=== PATIENT | male | born 1950 | race Caucasian/White ===

== ENCOUNTER 2016-10-25 11:57 | Emergency (ER) | payer OTHER, MEDICARE ==
[~2016-10-25 11:57] MED LIST: ACULAR 3 ML3 M1 OP; CATAFLAM50 MG PO; CYCLOBENZAPRINE10 MG PO; HYDROCODONE BIT1 T11 PO; LOTENSIN40 MG PO; NORCO 5-325 TA1 EACH PO; NORFLEX100 MG PO; TOBREX OPHTH S2.5 ML OPH; VICODIN 5/500 505 MG PO
[2016-10-25 12:24] LABS: HEMATOCRIT 48.8 % (42.0-52.0); HEMOGLOBIN 16.1 g/dl (14.0-18.0); MEAN CELL VOLUME 90.7 fl (80.0-94.0); MEAN CORPUSCULAR HGB 29.9 pg (27.0-31.0); MEAN PLATELET VOLUME 10.4 fl (9.6-12.3); PLATELET COUNT AUTOMATED 210 10*3/uL (130-400); RED BLOOD COUNT 5.38 10*6/uL (4.50-5.90); WHITE BLOOD COUNT 6.1 10*3/uL (4.8-10.8)
[2016-10-25 12:33] LABS: PROTHROMBIN TIME 10.9 SECONDS (9.0-12.4)
[2016-10-25 12:40] LABS: ALBUMIN 3.7 gm/dl (3.1-4.5); ALKALINE PHOSPHATASE 59 U/L (45-117); BILIRUBIN, TOTAL 0.5 mg/dl (0.2-1.0); BUN 16 mg/dl (7-24); CARBON DIOXIDE 27 mmol/L (21-32); CHLORIDE 103 mmol/L (98-107); CKMB 0.5 ng/ml (0.5-3.6); CPK 58 U/L (39-308); EST GLOM FILT AFRICAN AMERICAN > 60 ml/min; GLUCOSE 102 mg/dL (65-99); SGOT/AST 22 IU/L (3-35); SGPT/ALT 26 U/L (12-78); SODIUM 140 mmol/L (136-145); TOTAL PROTEIN 7.7 gm/dL (6.4-8.2)
[2016-10-25 12:43] LABS: C-REACTIVE PROTEIN < 0.29 MG/DL (0-0.3); TROPONIN I < 0.015 ng/ml (<0.045)
[2016-10-25 12:47] LABS: BASOPHIL # 0.1 10*3/uL (0-0.1); BASOPHILS 2 % (0-1); LYMPHOCYTE # 1.4 10*3/uL (1.3-4.4); MONOCYTE # 1.2 10*3/uL (0.1-1.0); NEUTROPHIL # 3.4 10*3/uL (2.3-7.9); NEUTROPHILS 55 % (47-73); PLATELET SUFFICIENCY NORMAL (NORMAL); TOTAL CELLS COUNTED 100 #CELLS
[2016-10-25 12:57] LABS: BILIRUBIN NEGATIVE (NEGATIVE); BLOOD 1+ (NEGATIVE); CLARITY CLEAR (CLEAR); COLOR YELLOW (YELLOW); GLUCOSE NEGATIVE (NEGATIVE); KETONE NEGATIVE (NEGATIVE); LEUKO ESTERASE NEGATIVE (NEGATIVE); NITRITE NEGATIVE (NEGATIVE); PROTEIN NEGATIVE (NEGATIVE); UROBILINOGEN 0.2 E.U./dl (0.2-1.0)
[2016-10-25 13:11] LABS: URINE REFLEX COMMENT YES (NO)
[2016-10-25] MEDS ORDERED: ZITHROMAX250 MG PO (14:03)
[2016-10-25] MEDS ORDERED: PREDNISONE50 MG PO (14:03)
== END 2016-10-25 14:08 | disposition home or self-care (01) ==
LOC: ED 11:57
PROVIDERS: Emergency Medicine
DX: J20.9 Acute bronchitis, unspecified (principal); F17.200 Nicotine dependence, unspecified, uncomplicated; I10 Essential (primary) hypertension; Z90.49 Acquired absence of other specified parts of digestive tract; Z98.890 Other specified postprocedural states; Z79.899 Other long term (current) drug therapy

== ENCOUNTER 2017-07-23 10:48 | Emergency (ER) | payer OTHER, MEDICARE ==
[~2017-07-23] VITALS: Ht 160 cm; Wt 90.7 kg
[~2017-07-23 10:48] MED LIST changes: +PREDNISONE50 MG PO; +ZITHROMAX250 MG PO
[2017-07-23] MEDS ORDERED: NAPROSYN500 MG PO (12:50)
== END 2017-07-23 14:51 | disposition home or self-care (01) ==
LOC: ED 10:48
DX: M16.11 Unilateral primary osteoarthritis, right hip (principal); M47.896 Other spondylosis, lumbar region; M79.604 Pain in right leg; R03.0 Elevated blood-pressure reading, without diagnosis of hypertension; F17.200 Nicotine dependence, unspecified, uncomplicated; Z90.49 Acquired absence of other specified parts of digestive tract; Z98.890 Other specified postprocedural states; Z79.899 Other long term (current) drug therapy

== ENCOUNTER 2017-08-13 17:56 | Emergency (ER) | payer OTHER, MEDICARE ==
[~2017-08-13] VITALS: Ht 160 cm; Wt 93.0 kg
[~2017-08-13 17:56] MED LIST changes: +NAPROSYN500 MG PO
[2017-08-13] MEDS ORDERED: PREDNISONE10 MG PO (18:30)
[2017-08-13] MEDS ORDERED: CHLORZOXAZONE500 M2 PO (18:30)
== END 2017-08-13 18:47 | disposition home or self-care (01) ==
LOC: ED 17:56
DX: M79.661 Pain in right lower leg (principal); R03.0 Elevated blood-pressure reading, without diagnosis of hypertension; F17.200 Nicotine dependence, unspecified, uncomplicated; M19.90 Unspecified osteoarthritis, unspecified site

== ENCOUNTER 2018-03-06 14:52 | Emergency (ER) | payer OTHER ==
[~2018-03-06] VITALS: Ht 160 cm; Wt 90.7 kg
[~2018-03-06 14:52] MED LIST changes: +CHLORZOXAZONE500 M2 PO; +PREDNISONE10 MG PO
== END 2018-03-06 16:08 | disposition home or self-care (01) ==
LOC: ED 14:52
DX: S40.012A Contusion of left shoulder, initial encounter (principal); Z79.899 Other long term (current) drug therapy; W10.8XXA Fall (on) (from) other stairs and steps, initial encounter; Y93.01 Activity, walking, marching and hiking; Y92.89 Other specified places as the place of occurrence of the external cause; Y99.8 Other external cause status

== ENCOUNTER 2018-06-23 11:33 | Inpatient (IN) | payer OTHER ==
[2018-06-23] VITALS (8 sets, daily range): BP systolic 114–190; BP diastolic 53–90
[~2018-06-23] VITALS: Ht 160 cm; Wt 90.5 kg
--- NOTE | ~2018-06-23 | EKG ---
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
--- NOTE | ~2018-06-23 | EKG ---
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
--- NOTE | ~2018-06-23 | EKG ---
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
--- NOTE | ~2018-06-23 | PR ---
[place], [place] PROGRESS NOTE NAME: JENNIFER TORO [facility] #: [id number] UNIT #: [id number] ROOM: 511 DOCTOR: ALEXANDRA MOSES MD BIRTHDATE: [birth year] DOS: 06/24/2018 CARDIOLOGY PROGRESS NOTE SUBJECTIVE: The patient was seen in the Cardiology Department today, 06/24/2018 prior to his pharmacologic stress test. He is a 68-year-old man without any previous history of coronary artery disease who does have risk factors of hypertension and tobacco abuse. He presented to the hospital with several days of chest pain in his chest. The pain improves with rest, but gets worse with deep breathing or twisting. He states that it feels deeper than his chest wall. He did not have any associated fever, chills, nausea or diaphoresis. Since he has been in the hospital, his cardiograms have shown no acute changes. Cardiac troponin levels have been normal and a D-dimer is normal for his age. PHYSICAL EXAMINATION: VITAL SIGNS: Today, his pulse is 74 and regular, blood pressure is 144/74. He is afebrile. He weighs 90.5 kg and has a body mass index of 35.4. HEENT: Normocephalic and atraumatic. Extraocular muscles are intact. Sclerae are clear. Pupils equal, round and react to light. The oral mucosa is moist. Tongue is midline. NECK: Supple. He has no jugular distention. Carotids are full without bruits. LUNGS: Respirations are unlabored. He has decreased breath sounds at the bases, but no wheezes or rales. He has no presacral edema or chest wall tenderness. HEART: Has a regular rhythm with an S4 gallop. ABDOMEN: Soft and normally active. I could not reproduce his pain by palpation of the abdomen or the chest. EXTREMITIES: Showed no edema. There were no palpable cords or swelling. Pedal pulses are palpable bilaterally. IMPRESSION: Chest pain with features of musculoskeletal pain. PLAN: The patient has ruled out for an acute myocardial infarction, but he does have risk factors for coronary artery disease. PLAN: We will evaluate him further with a pharmacologic stress test. Further recommendations will depend upon the results of the stress test. I thank the hospitalist physicians for asking our advice regarding his assessment. [place], [place] PROGRESS NOTE NAME: JENNIFER TORO UNIT #: [id number] ROOM: 511 DOCTOR: ALEXANDRA MOSES MD BIRTHDATE: [birth year] ALEXANDRA MOSES MD CM:PNTRANS [id number] ALEXANDRA MOSES MD 06/24/18 1626 interface
[2018-06-23 11:48] LABS: HEMATOCRIT 49.4 % (42.0-52.0); HEMOGLOBIN 16.4 g/dl (14.0-18.0); MEAN CELL VOLUME 90.8 fl (80.0-94.0); MEAN CORPUSCULAR HGB 30.1 pg (27.0-31.0); MEAN CORPUSCULAR HGB CONC 33.2 g/dl (33.0-37.0); MEAN PLATELET VOLUME 10.4 fl (9.6-12.3); PLATELET COUNT AUTOMATED 279 10*3/uL (130-400); RED BLOOD COUNT 5.44 10*6/uL (4.50-5.90); RED CELL DISTRI WIDTH 13.5 % (0-14.5); WHITE BLOOD COUNT 13.6 10*3/uL (4.8-10.8)
[2018-06-23 11:57] LABS: ACT PARTIAL THROMBO TIME 24.9 SECONDS (20.8-31.5)
[2018-06-23 12:08] LABS: ATYPICAL LYMPHS 1 % (0-0); PLATELET SUFFICIENCY NORMAL (NORMAL); TOTAL CELLS COUNTED 100 #CELLS
[2018-06-23 12:16] LABS: ALBUMIN 3.7 gm/dl (3.1-4.5); ALKALINE PHOSPHATASE 81 U/L (45-117); BUN 21 mg/dl (7-24); CHLORIDE 103 mmol/L (98-107); CREATININE 1.14 mg/dL (0.70-1.30); SGOT/AST 19 IU/L (3-35); SGPT/ALT 26 U/L (12-78); SODIUM 138 mmol/L (136-145); TOTAL PROTEIN 7.9 gm/dL (6.4-8.2)
[2018-06-23 12:17] LABS: TROPONIN I < 0.015 ng/ml (<0.045)
[2018-06-23] MEDS ORDERED: Lopressor25 MG PO (14:29)
[2018-06-23] MEDS ORDERED: AMLODIPINE BESYL5 MG PO (14:30)
[2018-06-24] VITALS: BP 122/62
[2018-06-24 06:28] LABS: HEMOGLOBIN 14.8 g/dl (14.0-18.0); MEAN CELL VOLUME 91.6 fl (80.0-94.0); MEAN CORPUSCULAR HGB 29.5 pg (27.0-31.0); MEAN CORPUSCULAR HGB CONC 32.2 g/dl (33.0-37.0); MEAN PLATELET VOLUME 10.3 fl (9.6-12.3); PLATELET COUNT AUTOMATED 248 10*3/uL (130-400); RED BLOOD COUNT 5.02 10*6/uL (4.50-5.90); RED CELL DISTRI WIDTH 13.4 % (0-14.5); WHITE BLOOD COUNT 10.1 10*3/uL (4.8-10.8)
[2018-06-24 06:44] LABS: ACT PARTIAL THROMBO TIME 25.1 SECONDS (20.8-31.5)
[2018-06-24 06:54] LABS: ALBUMIN 3.2 gm/dl (3.1-4.5); CHLORIDE 102 mmol/L (98-107); POTASSIUM 4.1 mmol/L (3.5-5.1); SODIUM 137 mmol/L (136-145)
[2018-06-24 07:02] LABS: ALKALINE PHOSPHATASE 64 U/L (45-117); BUN 24 mg/dl (7-24); CHOLESTEROL 143 mg/dL (<200); CREATININE 1.15 mg/dL (0.70-1.30); FREE T4 1.08 ng/dl (0.76-1.46); HDL CHOLESTEROL 31 mg/dl (40-60); LDL CHOLESTEROL 90 mg/dL (9-159); PHOSPHOROUS 3.8 mg/dL (2.5-4.9); SGOT/AST 13 IU/L (3-35); SGPT/ALT 20 U/L (12-78); TOTAL PROTEIN 7.4 gm/dL (6.4-8.2); TRIGLYCERIDES 111 mg/dl (<150); VLDL CHOLESTEROL 22 mg/dL (6-40)
[2018-06-24 07:09] LABS: ATYPICAL LYMPHS 2 % (0-0); PLATELET SUFFICIENCY NORMAL (NORMAL); TOTAL CELLS COUNTED 100 #CELLS
[2018-06-24 08:00] VITALS: BP 144/74
[2018-06-24 08:02] LABS: VITAMIN D, 25-HYDROXY 17.4 ng/mL (30-100)
[2018-06-24 12:00] VITALS: BP 148/62
[2018-06-24 16:00] VITALS: BP 147/60
== END 2018-06-24 17:28 | disposition home or self-care (01) | DRG 206 ==
LOC: ED 11:33 → 5E 12:58 → EDHOLD 12:58 → 5E 13:12
PROVIDERS: Emergency Medicine; Podiatrist Primary Podiatric Medicine
DX: M94.0 Chondrocostal junction syndrome [Tietze] (principal); R65.10 Systemic inflammatory response syndrome (SIRS) of non-infectious origin without acute organ dysfunction; I16.1 Hypertensive emergency; E83.41 Hypermagnesemia; R94.31 Abnormal electrocardiogram [ECG] [EKG]; Z71.6 Tobacco abuse counseling; I10 Essential (primary) hypertension; M47.816 Spondylosis without myelopathy or radiculopathy, lumbar region; E66.9 Obesity, unspecified; M50.30 Other cervical disc degeneration, unspecified cervical region; F17.210 Nicotine dependence, cigarettes, uncomplicated; Z90.49 Acquired absence of other specified parts of digestive tract; M16.11 Unilateral primary osteoarthritis, right hip; Z82.49 Family history of ischemic heart disease and other diseases of the circulatory system; Z83.3 Family history of diabetes mellitus; Z80.42 Family history of malignant neoplasm of prostate; Z79.899 Other long term (current) drug therapy; Z68.35 Body mass index [BMI] 35.0-35.9, adult

== ENCOUNTER → 2018-08-22 | Outpatient (CLI) | payer OTHER ==
[~2018-08-22] MED LIST changes: +AMLODIPINE BESYL5 MG PO; +Lopressor25 MG PO; +ZOFRAN4 MG PO
== END | disposition home or self-care (01) ==
LOC: RAD 14:07
DX: M50.323 Other cervical disc degeneration at C6-C7 level (principal)

== ENCOUNTER → 2019-05-08 | Outpatient (CLI) | payer OTHER ==
[~2019-05-08] MED LIST changes: +AMOXICILLIN500 M2 PO; +TESSALON PERLE100 MG PO
== END | disposition home or self-care (01) ==
LOC: RAD 15:12
DX: J02.9 Acute pharyngitis, unspecified (principal); R05 Cough; R09.89 Other specified symptoms and signs involving the circulatory and respiratory systems; Z87.891 Personal history of nicotine dependence

== ENCOUNTER 2019-05-11 02:13 | Emergency (ER) | payer OTHER ==
[~2019-05-11] VITALS: Ht 160 cm; Wt 88.5 kg
[~2019-05-11 02:13] MED LIST changes: -AMOXICILLIN500 M2 PO; -TESSALON PERLE100 MG PO
[2019-05-11] MEDS ORDERED: TESSALON PERLE100 MG PO (04:52)
[2019-05-11] MEDS ORDERED: AMOXICILLIN500 M2 PO (04:52)
== END 2019-05-11 05:04 | disposition home or self-care (01) ==
LOC: ED 02:13
DX: J40 Bronchitis, not specified as acute or chronic (principal); I10 Essential (primary) hypertension; E11.9 Type 2 diabetes mellitus without complications; Z72.0 Tobacco use; Z79.899 Other long term (current) drug therapy

== ENCOUNTER → 2019-12-07 | Day surgery (SDC) | payer OTHER ==
[~2019-12-07] VITALS: Ht 160 cm; Wt 90.7 kg
[~2019-12-07] MED LIST changes: +AMOXICILLIN500 M2 PO; +TESSALON PERLE100 MG PO
[2019-12-07 09:15] VITALS: BP 149/69
[2019-12-07 10:18] VITALS: BP 155/79
[2019-12-07 10:21] VITALS: BP 153/75
[2019-12-07 10:24] VITALS: BP 155/80
[2019-12-07 10:30] VITALS: BP 166/87
[2019-12-07 10:33] VITALS: BP 161/84
== END | disposition home or self-care (01) ==
LOC: SDC 12-05 10:15
DX: L72.0 Epidermal cyst (principal); I10 Essential (primary) hypertension; F17.210 Nicotine dependence, cigarettes, uncomplicated; Z79.899 Other long term (current) drug therapy; Z98.890 Other specified postprocedural states; Z82.49 Family history of ischemic heart disease and other diseases of the circulatory system; Z80.8 Family history of malignant neoplasm of other organs or systems

== ENCOUNTER → 2020-10-02 | Outpatient (CLI) | payer OTHER ==
[~2020-10-02] MED LIST changes: +TOPROL XL25 MG PO
== END | disposition home or self-care (01) ==
LOC: COVID19 12:17
PROVIDERS: ATTEND Surgery
DX: Z01.812 Encounter for preprocedural laboratory examination (principal); Z20.822 Contact with and (suspected) exposure to COVID-19

== ENCOUNTER → 2020-10-07 | Day surgery (SDC) | payer OTHER ==
[~2020-10-07] VITALS: Ht 160 cm; Wt 86.2 kg
[2020-10-07 07:00] VITALS: BP 165/70
[2020-10-07 08:25] VITALS: BP 107/60
[2020-10-07 08:40] VITALS: BP 113/62
[2020-10-07 08:55] VITALS: BP 139/69
== END ==
LOC: SDC 10-03 08:45
PROVIDERS: ATTEND Surgery
DX: Z12.11 Encounter for screening for malignant neoplasm of colon (principal); K62.1 Rectal polyp; I10 Essential (primary) hypertension; F17.210 Nicotine dependence, cigarettes, uncomplicated; Z90.49 Acquired absence of other specified parts of digestive tract; Z98.890 Other specified postprocedural states; Z79.899 Other long term (current) drug therapy

== ENCOUNTER 2023-05-22 12:50 | Emergency (ER) | payer OTHER ==
[~2023-05-22] VITALS: Ht 160 cm; Wt 86.2 kg
[2023-05-22 13:43] LABS: BASO # 0.1 10*3/uL (0.0-0.1); BASO % 0.6 % (0.0-1.0); EOS # 0.2 10*3/uL (0.0-0.4); EOS % 2.3 % (1.0-4.0); HEMATOCRIT 45.9 % (42.0-52.0); LYMPH # 2.8 10*3/uL (1.3-4.4); LYMPH % 34.2 % (27.0-41.0); MEAN CELL VOLUME 91.4 fl (80.0-94.0); MEAN CORPUSCULAR HGB 30.9 pg (27.0-31.0); MEAN CORPUSCULAR HGB CONC 33.8 g/dl (33.0-37.0); MEAN PLATELET VOLUME 10.2 fl (9.6-12.3); MONO % 12.1 % (3.0-9.0); NEUT # 4.1 10*3/uL (2.3-7.9); NEUT % 50.6 % (47.0-73.0); PLATELET COUNT AUTOMATED 249 10*3/uL (130-400); RED BLOOD COUNT 5.02 10*6/uL (4.50-5.90); RED CELL DISTRI WIDTH 12.7 % (0-14.5); WHITE BLOOD COUNT 8.2 10*3/uL (4.8-10.8)
[2023-05-22 14:01] LABS: BILIRUBIN Negative (Negative); BLOOD Trace-Lysed (Negative); CLARITY Clear (Clear); COLOR Yellow (Yellow); GLUCOSE Negative (Negative); KETONE Negative (Negative); LEUKO ESTERASE Negative (Negative); NITRITE Negative (Negative); PH 5.5 (4.5-8.0); SPECIFIC GRAVITY 1.015 (1.001-1.030)
[2023-05-22 14:11] LABS: ALKALINE PHOSPHATASE 61 U/L (46-116); BUN 22 mg/dl (9-23); CHLORIDE 109 mmol/L (98-107); LIPASE 24 U/L (12-53); POTASSIUM 4.2 mmol/L (3.4-5.1); SGPT/ALT 18 U/L (5-49)
[2023-05-22 14:17] LABS: BACTERIA TRACE
[2023-05-22] MEDS ORDERED: HYDROCODONE-AC1 EAC1 PO (15:56)
== END 2023-05-22 16:12 | disposition home or self-care (01) ==
LOC: ED 12:50
PROVIDERS: Nurse Practitioner Family
DX: R31.9 Hematuria, unspecified (principal); M99.73 Connective tissue and disc stenosis of intervertebral foramina of lumbar region; I10 Essential (primary) hypertension; E66.9 Obesity, unspecified; F17.210 Nicotine dependence, cigarettes, uncomplicated; Z68.31 Body mass index [BMI] 31.0-31.9, adult; Z98.890 Other specified postprocedural states; Z90.49 Acquired absence of other specified parts of digestive tract

== ENCOUNTER → 2023-05-26 | Outpatient (CLI) | payer OTHER ==
[~2023-05-26] MED LIST changes: +HYDROCODONE-AC1 EAC1 PO
== END | disposition home or self-care (01) ==
LOC: RAD 10:58
PROVIDERS: ATTEND Family Medicine
DX: M51.37 Other intervertebral disc degeneration, lumbosacral region (principal); I70.0 Atherosclerosis of aorta